=== PATIENT | male | born 1990 | race Caucasian/White ===

== ENCOUNTER 2019-01-14 23:50 | Emergency (ER) | payer OTHER ==
[~2019-01-14] VITALS: Ht 180.3 cm; Wt 74.8 kg
[2019-01-15] MEDS ORDERED: LORA1TAB PO (00:11)
[2019-01-15] MEDS ORDERED: [UNRECOGNIZED DRUG - REMARK] (00:11)
--- NOTE | 2019-01-15 00:40 | NUR ---
Dr. Cho at bedside for MSE.
--- NOTE | 2019-01-15 01:03 | NUR ---
Pt provided urine sample, sent to lab.
--- NOTE | 2019-01-15 01:10 | NUR ---
Pt out of ER for CT.
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
[2019-01-15 01:16] LABS: BASOPHILS # (AUTO) 0.1 K/uL (0.0-8.0); EOSINOPHILS # (AUTO) 0.5 K/uL (0.0-0.7); EOSINOPHILS % (AUTO) 7.5 % (0.0-7.0); HEMATOCRIT 49.2 % (36.7-47.1); HEMOGLOBIN 17.2 g/dL (12.5-16.3); LYMPHOCYTES # (AUTO) 2.1 K/uL (20.0-40.0); LYMPHOCYTES % (AUTO) 31.7 % (20.5-51.5); MEAN CORPUSCULAR HEMOGLOBIN 31.4 uug (23.8-33.4); MEAN CORPUSCULAR HGB CONC 35 g/dL (32.5-36.3); MEAN CORPUSCULAR VOLUME 90.2 fL (73.0-96.2); MONOCYTES # (AUTO) 0.5 K/uL (2.0-10.0); MONOCYTES % (AUTO) 7.8 % (0.0-11.0); NEUTROPHILS # (AUTO) 3.5 K/uL (1.8-8.9); PLATELET COUNT (AUTO) 221 K/uL (152-348); RED BLOOD CELL COUNT(AUTO) 5.46 MIL/uL (4.06-5.63); WHITE BLOOD COUNT (AUTO) 6.7 K/uL (3.6-10.2)
--- NOTE | 2019-01-15 01:18 | NUR ---
Pt back to ER from CT.
[2019-01-15 01:23] LABS: *AMPHETAMINE, URINE POSITIVE (NEGATIVE); *BARBITURATE, URINE NEGATIVE (NEGATIVE); *CANNABINOID, URINE NEGATIVE (NEGATIVE); *COCCAINE, URINE NEGATIVE (NEGATIVE); *OPIATE, URINE NEGATIVE (NEGATIVE); *PHENCYCLIDINE SCREEN,URINE NEGATIVE (NEGATIVE)
[2019-01-15 01:32] LABS: CARBON DIOXIDE 29 mmol/L (21-32); CHLORIDE 101 mmol/L (98-107); GLUCOSE 101 mg/dL (74-106); POTASSIUM 3.6 mmol/L (3.5-5.1); UREA NITROGEN, BLOOD 13 mg/dL (7-18)
[2019-01-15 01:41] LABS: ETHANOL < 3 MG/DL (0-0)
[2019-01-15 01:52] LABS: ALANINE AMINOTRANSFERASE 32 U/L (16-63); ALKALINE PHOSPHATASE 116 U/L (50-136); ASPARTATE AMINOTRANSFERASE 17 U/L (15-37); BILIRUBIN,DIRECT 0.1 mg/dL (0.0-0.2); BILIRUBIN,TOTAL 0.3 mg/dL (0.2-1.0); TOTAL PROTEIN, SERUM 7.5 g/dL (6.4-8.2)
[2019-01-15 01:54] LABS: ACETAMINOPHEN < 2.0 ug/mL (10-30)
--- NOTE | 2019-01-15 02:04 | NUR ---
[employer] at bedside to interview patient.
--- NOTE | 2019-01-15 02:27 | NUR ---
Called Kay James RN for PET eval, left message.
--- NOTE | 2019-01-15 03:18 | NUR ---
Kay arrived to ER for psych eval.
--- NOTE | 2019-01-15 04:25 | NUR ---
Patient discharged to home in stable conditon. Written and verbal after care instructions given. Patient verbalizes understanding of instructions. Pt ambulated out of ER with steady gait, no acute signs of distress, VSS, all belongings taken.
[2019-01-15 04:26] VITALS: BP 146/97
== END 2019-01-15 04:26 | disposition home or self-care (01) ==
LOC: ER 01-15 00:01
DX: F15.10 Other stimulant abuse, uncomplicated (principal); F17.200 Nicotine dependence, unspecified, uncomplicated; Z79.899 Other long term (current) drug therapy
CPT/HCPCS: 36415; 70450; 80048; 80076; 80307; 85025; 99284; G0480 ×2; G0481; A4663